=== PATIENT | male | born 1985 | race Hispanic/Latino ===

== ENCOUNTER 2018-06-20 10:54 | Emergency (ER) | payer SELFPAY ==
[~2018-06-20] VITALS: Ht 175.3 cm; Wt 59.0 kg
[2018-06-20 11:27] LABS: HEMATOCRIT 30.7 % (39.0-50.0); HEMOGLOBIN 11.1 g/dl (14.0-18.0); IMMATURE GRANULOCYTES 1.5 % (0.0-5.0); MEAN CELL VOLUME 87.5 fL CALC (80.0-100.0); MEAN CORPUSCULAR HGB 31.6 pG CALC (26.0-32.0); MEAN CORPUSCULAR HGB CONC 36.2 g/L CALC (32.0-36.0); NEUT# 13.69 thou/uL (1.82-7.42); RED BLOOD COUNT 3.51 mill/uL (4.70-6.10); RED CELL DISTRI WIDTH 13.6 % (11.5-15.5)
[2018-06-20 11:40] LABS: URINE BLOOD DIPSTICK LARGE (NEGATIVE); URINE COLOR YELLOW; URINE GLUCOSE - DIPSTICK 100 mg/dL (NEGATIVE); URINE KETONE NEGATIVE (NEGATIVE); URINE LEUK ESTERASE NEGATIVE (NEGATIVE); URINE NITRITE - DIPSTICK NEGATIVE (Negative); URINE PROTEIN - DIPSTICK 30 mg/dL (NEG-TRACE)
[2018-06-20 11:41] LABS: URINE CLARITY CLOUDY
[2018-06-20 11:42] LABS: URINE BILIRUBIN - DIPSTICK NEGATIVE (NEGATIVE); URINE SQUAMOUS EPITHELIAL CELL FEW EPI/hpf (0-FEW)
[2018-06-20 12:03] LABS: ALBUMIN 2.3 g/dL (3.2-5.0); ALKALINE PHOSPHATASE 52 u/l (38-126); ANION GAP 11 (6-22 (CALC)); BILIRUBIN, TOTAL 1.4 mg/dL (0.0-1.4); BUN 18 mg/dL (9-20); BUN/CREATININE RATIO 19 (12-20 (CALC)); CARBON DIOXIDE 28 mmol/l (22-30); CHLORIDE 89 mmol/l (95-108); GFR > 60 ML/MIN (>=60 (CALC)); GFR FOR AFR.AMER. > 60 ML/MIN (>=60 (CALC)); LIPASE 290 u/l (23-300); POTASSIUM 3.1 mmol/l (3.5-5.1); SGOT/AST 25 u/l (17-59); SODIUM 125 mmol/l (137-146); TOTAL PROTEIN 5.1 g/dL (6.3-8.2)
[2018-06-20 12:18] LABS: INFLUENZA B NONE DETECTED (NONE DETECT)
[2018-06-20 14:35] VITALS: BP 114/70
== END 2018-06-20 14:35 | disposition short-term general hospital (02) | DRG 193 ==
LOC: ED 10:54
PROVIDERS: Family Medicine
DX: J18.1 Lobar pneumonia, unspecified organism (principal); K85.90 Acute pancreatitis without necrosis or infection, unspecified; N39.0 Urinary tract infection, site not specified; N13.30 Unspecified hydronephrosis; K50.10 Crohn's disease of large intestine without complications
CPT/HCPCS: Q9967